=== PATIENT | male | born 1955 | race Caucasian/White ===

== ENCOUNTER 2017-03-26 03:39 | Emergency (ER) | payer OTHER ==
--- NOTE | 2017-03-26 03:44 | EDM.PDOC ---
ED HPI GENERAL MEDICAL PROBLEM - General Chief Complaint: Abdominal Pain Stated Complaint: RIGHT SIDE PAIN/VOMITING Time Seen by Provider: 03/26/17 03:40 - History of Present Illness INITIAL COMMENTS - FREE TEXT/NARRATIVE: 62-year-old male presents to the emergency room with right-sided abdominal pain. This pain awoke him a little more than an hour ago is very severe and is right sided cannot recall if it started in his flank it does not shoot into his groin he has a history of kidney stones but this is acting a little different and his kidney stones have not been this severe as last kidney stone was in 2005. Patient has had nausea and vomiting at least for 5 times. He denies any fevers or chills. The patient normally takes Flomax for BPH however he has not taken it for several days due to perceived side effects. Right Abdomen Pain Score (Numeric/FACES): 10 - Related Data Allergies Allergy/AdvReac Type Severity Reaction Status Date / Time No Known Allergies Allergy Verified 03/26/17 03:42 Home Meds: Home Meds Hydrocodone/Acetaminophen [[place] 5-325 Tablet] 1 each PO Q4H PRN #20 tablet [Rx] ED ROS GENERAL - Review of Systems Review Of Systems: See Below Constitutional: Reports: No Symptoms. Denies: Fever, Chills HEENT: Reports: No Symptoms Respiratory: Reports: No Symptoms Cardiovascular: Reports: No Symptoms Endocrine: Reports: No Symptoms GI/Abdominal: Reports: Abdominal Pain, Nausea, Vomiting. Denies: Constipation, Diarrhea : Denies: Discharge, Dysuria, Frequency, Hematuria Neurological: Reports: No Symptoms Psychiatric: Reports: No Symptoms ED EXAM, GENERAL - Physical Exam Exam: See Below Exam Limited By: No Limitations General Appearance: Alert, Moderate Distress (From the pain) Head: Atraumatic, Normocephalic Neck: Normal Inspection, Supple, Non-Tender, Full Range of Motion. No: Lymphadenopathy (L), Lymphadenopathy (R) Respiratory/Chest: No Respiratory Distress, Lungs Clear, Normal Breath Sounds Cardiovascular: Regular Rate, Rhythm, No Edema, No Murmur GI/Abdominal: Normal Bowel Sounds, Soft, Other (Patient has significant but vague right-sided abdominal discomfort this pain is not worsened with palpation he has mild rigidity no rebound no guarding) Back Exam: Normal Inspection. No: CVA Tenderness (L), CVA Tenderness (R) Extremities: Normal Inspection, No Pedal Edema Course - Vital Signs Last Recorded V/S: Last Vital Signs Temp 35.8 C 03/26/17 03:42 Pulse 83 03/26/17 03:42 Resp 20 03/26/17 03:42 BP 128/85 03/26/17 03:42 Pulse Ox 100 03/26/17 03:42 - Orders/Labs/Meds Orders: Active Orders 24 hr Category Date Time Status Abdomen Pelvis wo Cont [CT] Stat Exams 03/26/17 03:51 Taken URINALYSIS W/MICROSCOPIC [UA W/MICROSCOPIC] [URIN] Stat Lab 03/26/17 07:00 Received Lactated Ringers [Ringers, Lactated] 1,000 ml Med 03/26/17 04:00 Active IV ASDIRECTED Medication Orders Lactated Ringer's (Ringers, Lactated) 1,000 mls @ 150 mls/hr IV ASDIRECTED LAURA Last Admin: 03/26/17 04:01 Dose: 150 mls/hr Labs: Laboratory Tests 03/26/17 03/26/17 Range/Units 04:00 04:00 WBC 10.25 H (4.23-9.07) K/mm3 RBC 5.06 (4.63-6.08) M/mm3 Hgb 15.3 (13.7-17.5) gm/L Hct 44.1 (40.1-51.0) % MCV 87.2 (79.0-92.2) fl MCH 30.2 (25.7-32.2) pg MCHC 34.7 (32.2-35.5) g/dl RDW Std Deviation 39.8 (35.1-43.9) fL Plt Count 248 (163-337) K/mm3 MPV 10.9 (9.4-12.3) fl Neutrophils % (Manual) 59 (40-60) % Band Neutrophils % 0 (0-10) % Lymphocytes % (Manual) 29 (20-40) % Atypical Lymphs % 6 % Monocytes % (Manual) 6 (2-10) % Eosinophils % (Manual) 0 L (0.8-7.0) % Basophils % (Manual) 0 L (0.2-1.2) Platelet Estimate Adequate Plt Morphology Comment Normal RBC Morph Comment Normal Sodium 142 (136-145) mEq/L Potassium 3.2 L (3.5-5.1) mEq/L Chloride 103 (98-107) mEq/L Carbon Dioxide 27 (21-32) mEq/L Anion Gap 15.2 H (5-15) BUN 23 H (7-18) mg/dL Creatinine 1.4 H (0.7-1.3) mg/dL Est Cr Clr Drug Dosing 50.63 mL/min Estimated GFR (MDRD) 52 (>60) mL/min BUN/Creatinine Ratio 16.4 (14-18) Glucose 140 H (74-106) mg/dL Calcium 9.0 (8.5-10.1) mg/dL Total Bilirubin 0.4 (0.2-1.0) mg/dL AST 28 (15-37) U/L ALT 67 H (16-63) U/L Alkaline Phosphatase 101 (46-116) U/L Total Protein 7.6 (6.4-8.2) g/dl Albumin 4.0 (3.4-5.0) g/dl Globulin 3.6 gm/dL Albumin/Globulin Ratio 1.1 (1-2) Meds: Medications Generic Name Dose Route Start Last Admin Trade Name Freq PRN Reason Stop Dose Admin Lactated Ringer's 1,000 mls @ 150 mls/hr 03/26/17 04:00 03/26/17 04:01 Ringers, Lactated IV 150 mls/hr ASDIRECTED LAURA Administration Discontinued Medications Generic Name Dose Route Start Last Admin Trade Name Freq PRN Reason Stop Dose Admin Hydrocodone Bitart/Acetaminophen 2 tab 03/26/17 05:47 03/26/17 05:57 [place] 325-5 Mg PO 03/26/17 05:48 2 tab ONETIME ONE Administration Fentanyl 100 mcg 03/26/17 03:52 03/26/17 04:02 Sublimaze IVPUSH 03/26/17 03:53 100 mcg ONETIME ONE Administration Fentanyl 50 mcg 03/26/17 04:24 03/26/17 04:32 Sublimaze IVPUSH 03/26/17 04:25 50 mcg ONETIME ONE Administration Fentanyl 50 mcg 03/26/17 05:18 03/26/17 05:23 Sublimaze IVPUSH 03/26/17 05:19 50 mcg ONETIME ONE Administration Fentanyl 100 mcg 03/26/17 05:47 03/26/17 05:53 Sublimaze IVPUSH 03/26/17 05:48 100 mcg ONETIME ONE Administration Lactated Ringer's Confirm 03/26/17 03:59 03/26/17 04:15 Ringers, Lactated Administered 03/26/17 04:00 Not Given Dose 1,000 mls @ as directed .ROUTE .STK-MED ONE Ondansetron HCl 4 mg 03/26/17 03:54 03/26/17 04:01 Zofran IVPUSH 03/26/17 03:55 4 mg ONETIME ONE Administration Ondansetron HCl 4 mg 03/26/17 05:49 03/26/17 05:55 Zofran IVPUSH 03/26/17 05:50 4 mg ONETIME ONE Administration Tamsulosin HCl 0.4 mg 03/26/17 04:50 03/26/17 04:56 Flomax PO 03/26/17 04:51 0.4 mg ONETIME ONE Administration - Re-Assessments/Exams Free Text/Narrative Re-Assessment/Exam: 03/26/17 05:18 CT was obtained early which shows a small kidney stone at the UVJ with moderate hydronephrosis on the right side this was confirmed by the V rad report. Patient was given a dose of Flomax. Awaiting remainder of the labs at this point. 03/26/17 07:24 Awaiting UA. Patient is doing much better on a pain control standpoint. The patient will be discharged once his urinalysis is reviewed. Departure - Departure Time of Disposition: 07:27 Disposition: Home, Self-Care 01 Clinical Impression: Right kidney stone - Discharge Information Prescriptions: Hydrocodone/Acetaminophen [[place] 5-325 Tablet] 1 each PO Q4H PRN #20 tablet PRN Reason: Abdominal Pain Additional Instructions: Return to the emergency room with any questions or problems or worsening symptoms. Follow-up with your regular physician as soon as you get home. Restart your Flomax 1 daily. You've been given hydrocodone, [place] 5/325, take 1 or 2 every 4-6 hours as needed for pain. Allow 12 hours after using this medication before driving or returning to work. - My Orders Last 24 Hours: My Active Orders 03/26/17 03:51 Abdomen Pelvis wo Cont [CT] Stat 03/26/17 04:00 Lactated Ringers [Ringers, Lactated] 1,000 ml IV ASDIRECTED 03/26/17 07:00 URINALYSIS W/MICROSCOPIC [UA W/MICROSCOPIC] [URIN] Stat - Assessment/Plan Last 24 Hours: My Active Orders 03/26/17 03:51 Abdomen Pelvis wo Cont [CT] Stat 03/26/17 04:00 Lactated Ringers [Ringers, Lactated] 1,000 ml IV ASDIRECTED 03/26/17 07:00 URINALYSIS W/MICROSCOPIC [UA W/MICROSCOPIC] [URIN] Stat
[2017-03-26] MEDS ORDERED: fentaNYL 100 MCG/2 ML SDV IVPUSH ONE ×4 (03:52→05:47)
[2017-03-26] MEDS ORDERED: Ondansetron 4 MG/2 ML SDV IVPUSH ONE ×2 (03:54→05:49)
[2017-03-26] MEDS ORDERED: Lactated Ringers 1,000 ML ONE (03:59)
[2017-03-26] MEDS ORDERED: Lactated Ringers 1,000 ML IV SCH (04:00)
[2017-03-26] MEDS ORDERED: Tamsulosin 0.4 MG Cap.ER PO ONE (04:50)
[2017-03-26] MEDS ORDERED: Acetaminophen/HYDROcodone 325-5 MG Tab PO ONE (05:47)
[2017-03-26 08:12] VITALS: BP 128/79
--- NOTE | 2017-03-26 09:10 | CT ---
CT abdomen and pelvis Technique: Multiple axial sections were obtained from above the dome of the diaphragm inferiorly through the pubic symphysis. Intravenous and oral contrast was not utilized. Study has been performed as a ureteral stone protocol. Findings: Kidneys show no abnormal calcifications. Right ureter is prominent in size. This finding is due to a small 2 mm calcification within the distal right ureter near the UVJ. Visualized lung bases are clear. Noncontrast appearance of the liver and spleen appear within normal limits. Adrenal glands show no nodule. Pancreas is within normal limits. Gallbladder shows no calcified gallstones. Aorta shows atherosclerotic change which continues in the iliac vessels. No aneurysm is seen. No retroperitoneal adenopathy or mesenteric abnormalities are seen. No pelvic mass or adenopathy is seen. Bone window settings were reviewed which appear within normal limits for the patient's age. Incidental note of small fat-containing umbilical hernia. Impression: 1. Dilated right ureter with small 2 mm calcification near the right UVJ. 2. Nothing else acute is seen on noncontrast CT study of the abdomen and pelvis performed as a ureteral stone protocol. Diagnostic code #3 Agree with preliminary report issued by [employer] ([employer] preliminary report dictated on 03/26/17, 5:40 AM Central Time)
== END 2017-03-26 07:55 | disposition home or self-care (01) ==
LOC: JD.ED 03:39
DX: N13.2 Hydronephrosis with renal and ureteral calculous obstruction (principal); I10 Essential (primary) hypertension; E78.00 Pure hypercholesterolemia, unspecified; Z79.899 Other long term (current) drug therapy; Z87.442 Personal history of urinary calculi
CPT/HCPCS: 36415; 74176; 80053; 81001; 85025; 96361; 96374; 96375; 96376; 99283; 99284; A9270; J2405; J3010; J7120

== ENCOUNTER 2017-03-26 14:08 | Emergency (ER) | payer OTHER ==
[2017-03-26] MEDS ORDERED: Ibuprofen 600 MG Tab PO ONE (14:57)
--- NOTE | 2017-03-26 15:03 | EDM.PDOC ---
ED HPI GENERAL MEDICAL PROBLEM - General Chief Complaint: Abdominal Pain Stated Complaint: ABDOMINAL PAIN/VOMITING Time Seen by Provider: 03/26/17 14:28 Source of Information: Reports: Patient, Family (), RN Notes Reviewed History Limitations: Reports: No Limitations - History of Present Illness INITIAL COMMENTS - FREE TEXT/NARRATIVE: Medical records indicate that the patient was seen in this ED earlier today for right-sided abdominal pain. Workup included a CT scan of the abdomen and pelvis , which found a 2 mm stone at the right UVJ. The remainder of his workup was unremarkable. The patient received a total of 300 mcg of fentanyl along with 2 tablets of [place] 5/325, 8 mg of IV Zofran, and 0.4 mg of oral Flomax. He was discharged home with a prescription for [place] 5/325 #20. He now returns stating that he has persistent right groin pain, along with nausea and vomiting. He was unaware that [place] can cause nausea and vomiting. The patient states that he ordinarily takes Flomax for BPH, but that he is visiting from [place], and forgot to bring his Flomax. He will be returning home this coming 03/31/2017, at which time he can resume his usual Flomax. Right Lower Abdomen Pain Score (Numeric/FACES): 6 - Related Data Allergies Allergy/AdvReac Type Severity Reaction Status Date / Time No Known Allergies Allergy Verified 03/26/17 14:18 Home Meds: Home Meds Hydrocodone/Acetaminophen [[place] 5-325 Tablet] 1 each PO Q4H PRN #20 tablet [Rx] Ondansetron [Zofran ODT] 1 tab PO Q8H PRN #10 tab.dis 03/26/17 [Rx] Tamsulosin [Flomax] 1 cap PO DAILY #5 cap.er 03/26/17 [Rx] Past Medical History HEENT History: Reports: Impaired Vision Other HEENT History: Wears glasses Cardiovascular History: Reports: High Cholesterol, Hypertension Genitourinary History: Reports: Renal Calculus - Past Surgical History Musculoskeletal Surgical History: Reports: Joint Replacement Social & Family History - Tobacco Use Smoking Status *Q: Never Smoker - Caffeine Use Caffeine Use: Reports: Coffee - Alcohol Use Days Per Week of Alcohol Use: 2 Number of Drinks Per Day: 2 Total Drinks Per Week: 4 - Recreational Drug Use Recreational Drug Use: No ED ROS GENERAL - Review of Systems Review Of Systems: See Below Constitutional: Reports: No Symptoms HEENT: Reports: No Symptoms Respiratory: Reports: No Symptoms Cardiovascular: Reports: No Symptoms Endocrine: Reports: No Symptoms GI/Abdominal: Reports: Abdominal Pain (right groin, as per the HPI), Nausea, Vomiting : Reports: Flank Pain (right) Musculoskeletal: Reports: No Symptoms Skin: Reports: No Symptoms Neurological: Reports: No Symptoms Psychiatric: Reports: No Symptoms Hematologic/Lymphatic: Reports: No Symptoms Immunologic: Reports: No Symptoms ED EXAM, RENAL/ - Physical Exam Exam: See Below Exam Limited By: No Limitations General Appearance: Alert, WD/WN, Mild Distress Eye Exam: Bilateral Eye: Normal Inspection Ears: Normal External Exam, Hearing Grossly Normal Nose: Normal Inspection, No Blood Throat/Mouth: Normal Inspection, Normal Lips, Normal Voice, No Airway Compromise Head: Atraumatic, Normocephalic Neck: Normal Inspection, Full Range of Motion Respiratory/Chest: No Respiratory Distress, Lungs Clear, Normal Breath Sounds, No Accessory Muscle Use Cardiovascular: Normal Peripheral Pulses, Regular Rate, Rhythm, No Gallop, No JVD, No Murmur, No Rub GI/Abdominal: Normal Bowel Sounds, Soft, Non-Tender, No Organomegaly, No Distention, No Abnormal Bruit, No Mass (Male) Exam: Deferred Rectal (Males) Exam: Deferred Back Exam: Normal Inspection, Full Range of Motion. No: CVA Tenderness (L), CVA Tenderness (R) Extremities: Normal Inspection, Normal Range of Motion, No Pedal Edema, Normal Capillary Refill Neurological: Alert, Oriented, Normal Cognition, No Motor/Sensory Deficits Psychiatric: Normal Affect Skin Exam: Warm, Dry, Intact, Normal Color, No Rash Lymphatic: No Adenopathy Course - Vital Signs Last Recorded V/S: Last Vital Signs Temp 36.2 C 03/26/17 14:14 Pulse 82 03/26/17 15:15 Resp 18 03/26/17 15:15 BP 125/87 03/26/17 15:15 Pulse Ox 96 03/26/17 15:15 - Orders/Labs/Meds Meds: Medications Discontinued Medications Generic Name Dose Route Start Last Admin Trade Name Freq PRN Reason Stop Dose Admin Ibuprofen 600 mg 03/26/17 14:57 03/26/17 15:08 Motrin PO 03/26/17 14:58 600 mg ONETIME ONE Administration - Re-Assessments/Exams Free Text/Narrative Re-Assessment/Exam: 03/26/17 14:58 The patient states that he continues to have right groin pain along with nausea and vomiting. He was unaware that the [place] that he was prescribed can cause nausea and vomiting. He was given Flomax here in the ED, but forgot his Flomax at home and will not be returning to [place] until 03/31/2017. At this time, he denies nausea, and therefore declined Zofran, however, I will prescribe him some Zofran. I will start him on ibuprofen with the recommendation that he try to avoid the [place] as much as possible and I will prescribe him 5 doses of Flomax, which should last him until he returns home. Departure - Departure Time of Disposition: 14:59 Disposition: Home, Self-Care 01 Condition: Fair Clinical Impression: Ureterolithiasis, Nausea & vomiting - Discharge Information Prescriptions: Ondansetron [Zofran ODT] 1 tab PO Q8H PRN #10 tab.dis PRN Reason: Nausea/Vomiting Tamsulosin [Flomax] 1 cap PO DAILY #5 cap.er Instructions: Kidney Stones, [id number] Referrals: PCP,Not In Area [Primary Care Provider] - Forms: ED Department Discharge Additional Instructions: You were seen in the emergency room for continued right groin pain, nausea, and vomiting. It is likely that you have not yet passed your kidney stone, but at 2 mm, and in its current location, you will almost certainly pass this stone on your own. We recommend that you take [id number] ibuprofen 2-3 tablets (400-600 mg) every 8 hours, with food, as needed for discomfort. Take as prescribed [place] 1-2 tablets every 6 hours, as needed for pain not relieved by ibuprofen. If you take [place], do not drive or operate heavy machinery. [place] will likely cause constipation, so consider taking a stool softener. [place] will also cause nausea and vomiting. Dissolve 1 tablet of the anti-nausea medicine Zofran on your tongue up to every 8 hours, as needed for nausea/vomiting. Resume taking Flomax, 1 tablet every morning, starting tomorrow, 03/27/2017, as prescribed. Strain your urine. If you recover a stone, take it to your doctor for analysis. If any other problems, please do not hesitate to return to the ER.
[2017-03-26 15:17] VITALS: BP 125/87
== END 2017-03-26 15:17 | disposition home or self-care (01) ==
LOC: JD.ED 14:08
DX: N20.1 Calculus of ureter (principal); I10 Essential (primary) hypertension; E78.00 Pure hypercholesterolemia, unspecified; Z98.890 Other specified postprocedural states; Z87.442 Personal history of urinary calculi; Z79.899 Other long term (current) drug therapy
CPT/HCPCS: 99283; A9270